=== PATIENT | female | born 1995 | race Caucasian/White ===

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

== ENCOUNTER 2018-03-25 14:12 | Emergency (ER) | payer OTHER ==
--- NOTE | 2018-03-25 14:21 | PDOC ---
History of Present Illness - General Chief Complaint: Nausea/Vomiting Stated Complaint: Vomiting/9 WEEKS Time Seen by Provider: 03/25/18 14:21 Past History - Past Medical History Home Medications: Ambulatory Orders Albuterol Sulfate Inhaler - [Ventolin HFA Inhaler -] 1 - 2 inh PO QID PRN #1 inhaler 09/20/16 Diabetes: Yes (PRE) - Suicide/Smoking/Psychosocial Hx Smoking History: Current every day smoker Have you smoked in the past 12 months: Yes Number of Cigarettes Smoked Daily: 20 'Breaking Loose' booklet given: 09/20/16 Hx Alcohol Use: No Drug/Substance Use Hx: No Substance Use Type: None
[2018-03-25] MEDS ORDERED: SODIUM CHLORIDE 0.9% 500 ML INFUS.BAG IV ONE ×2 (14:31→16:34)
[2018-03-25] MEDS ORDERED: RANITIDINE HCL 150 MG/10 ML UNIT-DOSE PO ONE (14:31)
[2018-03-25] MEDS ORDERED: METOCLOPRAMIDE HCL INJECTION 10 MG/2 ML VIAL IVPUSH ONE (14:31)
[2018-03-25] MEDS ORDERED: LIDOCAINE VISCOUS 2% ORAL/TOP 20 ML UNIT-DOSE CUP MM ONE (14:31)
[2018-03-25] MEDS ORDERED: MAG HYDROX/AL HYDROX/SIMETH 30 ML UNIT-DOSE CUP PO ONE (14:31)
[2018-03-25 14:32] VITALS: BMI 35.2
--- NOTE | 2018-03-25 14:32 | PDOC ---
History of Present Illness - General Chief Complaint: Nausea/Vomiting Stated Complaint: Vomiting/9 WEEKS - History of Present Illness Initial Comments: Katie Jules is a 22yo woman, at 9wks gestation by LMP (01/22-01/27) with a PMH of pre-diabetes and PCOS who presents with over a week of constant nausea and vomiting. She reports that she has not taken any medication at home and has not called her OB because her mother told her that vomiting was normal. However , she states that she has been unable to keep down any food or liquids for days , and she has been having difficulty sleeping due to constant vomiting. Ms Jules states that she has established care with an OB at [facility], and her was confirmed with a blood test. She has not yet had an ultrasound. She was last seen by her OB on 03/15/18. Past History - Past Medical History Allergies/Adverse Reactions: Allergies Allergy/AdvReac Type Severity Reaction Status Date / Time No Known Allergies Allergy Verified 03/25/18 15:16 Home Medications: Ambulatory Orders Albuterol Sulfate Inhaler - [Ventolin HFA Inhaler -] 1 - 2 inh PO QID PRN #1 inhaler 09/20/16 Doxylamine Succinate [Nighttime Sleep-Aid] 25 mg PO HS PRN #15 tablet 03/25/18 Pnv No.121/Iron/Folic Acid [ Multivitamin Tablet] 1 each PO DAILY #15 tablet 03/25/18 Pyridoxine HCl (Vitamin B6) [Pyridoxine HCl] 25 mg PO Q8H PRN #45 tablet Diabetes: Yes (PRE) - Suicide/Smoking/Psychosocial Hx Smoking History: Current every day smoker Have you smoked in the past 12 months: Yes Number of Cigarettes Smoked Daily: 20 'Breaking Loose' booklet given: 09/20/16 Hx Alcohol Use: No Drug/Substance Use Hx: No Substance Use Type: None Review of Systems - Review of Systems Comments:: General: No fevers, no chills, no weight or appetite change, no malaise HEENT: No changes in vision, no changes in hearing, no congestion, no sore throat CV: No chest pain, no palpitations, no LE edema Pulm: No SOB, no cough, no wheezing GI: +Nausea and vomiting. +Cannot tolerate PO. No change in bowel habits, no melena : No frequency, no urgency, no dysuria. +9wks by LMP. h/o PCOS Musc: No back pain, no joint swelling, no recent injury Skin: No rash, no lesions, no erythema Endo: No excessive thirst, no heat/cold intolerance. h/o pre-DM Heme: No unusual bruising or bleeding, no swollen glands Neuro: No syncope, no numbness/tingling, no focal weakness Vasc: No claudication Psych: No recent change in mood, no SI or HI *Physical Exam - Physical Exam Comments: General: Uncomfortable but in no acute distress HEENT: PERRL, EOMI, MMM, voice normal, normal neck ROM, no LAD Cards: RRR, no murmur appreciated Pulm: Comfortable on room air, clear to auscultation bilaterally Abd: Soft, nontender, nondistended, obese : No CVA tenderness Ext: Atraumatic. No LE edema. ROM intact. Strength 5/5 and equal bilaterally Vasc: Extremities WWP. Palpable radial and pedal pulses bilaterally Skin: Normal color, no rashes or lesions Neuro: A&Ox3, CN grossly intact, normal speech, motor/sensory grossly intact and symmetric Psych: Mood appropriate to situation ED Treatment Course - LABORATORY CBC & Chemistry Diagram: 03/25/18 15:25 03/25/18 15:25 Medical Decision Making - Medical Decision Making 03/25/18 14:40 Katie Jules is a 22yo woman with a PMH of PCOS and pre-diabetes, currently 9wks by LMP who presents with PO intolerance secondary to continuous nausea and vomiting for the past 1-1.5 weeks. - CBC, CMP to evaluate for abnormalities, especially electrolytes, given reported continuous vomiting - UA, urine preg, bHCG to confirm - Reglan IV and GI cocktail for vomiting and nausea. - 1L fluid bolus for likely dehydration - Plan to complete bedside abdominal US 03/25/18 15:35 - Bedside US completed. Confirmed single IUP. FHR measured at 166 and 175. Difficult to determine accurate CRL and dates because of artifact secondary to habitus - No additional vomiting - Labs pending 03/25/18 16:28 - Labs reviewed. Notable for random glucose 135, bHCG 98931. Leukocytosis 16.8 likely due to increase during combined with reaction to repeat vomiting. No fever or other abnormalities indicating infection. - Feels significnatly improved following medications - Given crackers and juice for PO challenge - Has not yet given urine sample. 03/25/18 18:09 - UA negative - Able to drink apple juice and eat a yari cracker - Discussed home care at length. Ms Jules states understanding - Discussed importance of follow up and explained plan to discharge home. Ms Jules states understanding and agreement. Seen and discussed with Dr Mcmanus. Nini Caballero PGY1 *DC/Admit/Observation/Transfer Diagnosis at time of Disposition: Nausea/vomiting in - Discharge Dispostion Disposition: HOME Condition at time of disposition: Stable Decision to Admit order: No - Prescriptions Prescriptions: Doxylamine Succinate [Nighttime Sleep-Aid] 25 mg PO HS PRN #15 tablet PRN Reason: Nausea And/Or Vomiting Pnv No.121/Iron/Folic Acid [ Multivitamin Tablet] 1 each PO DAILY #15 tablet Pyridoxine HCl (Vitamin B6) [Pyridoxine HCl] 25 mg PO Q8H PRN #45 tablet PRN Reason: Nausea And/Or Vomiting - Referrals Referrals: Mohsen Whitehead MD [Staff Physician] - - Patient Instructions Printed Discharge Instructions: DI for Hyperemesis Gravidarum, DI for -- Discomforts and Remedies Additional Instructions: Discharge Instructions: You were seen in the emergency department for nausea and vomiting during your . You had blood tests that were negative for any abnormalities. Your hormone was in the normal range (41,765). You also had an ultrasound completed showing a normal intrauterine with a normal heart rate. While in the emergency department, you were given IV fluids for hydration and anti-nausea medication to help you feel better. You were able to eat before you left for home. Medications: - You have been prescribed several medications to help with your nausea. Prescriptions were sent to your pharmacy, but you can also buy these medications over the counter without a prescription. Do not take more medication than has been prescribed unless you contact your clinic manager and receive different instructions. - Doxylamine is an antihistamine (allergy medicine) that can help with nausea and vomiting during . This medication makes you sleepy, so take 1/2 to 1 full tablet (12.5 to 25mg) before bed as needed. - Pyridoxine (Vitamin B6) is also known to help with nausea/vomiting in . You may take one tablet (25mg) every 8 hours as needed for nausea and vomiting. - You have also been given a prescription for vitamins. It is very important that you start taking this vitamin as soon as possible to help ensure that your baby continues to grow and develop normally. Follow Up: - Please see your clinic manager at your already scheduled appointment. If you have continued nausea or vomiting, contact your clinic manager to see if he/she has any suggestions. - If you need to establish care with an clinic manager at [facility], you have been referred to Dr Whitehead - Seek immediate medical care if you have continued severe nausea and vomiting that prevents you from eating or drinking anything at all. Also seek immediate care if you have any medical emergencies including chest pain or shortness of breath. - Post Discharge Activity
--- NOTE | 2018-03-25 15:19 | PDOC ---
Attending Attestation - Resident Resident Name: Nini Caballero - ED Attending Attestation I have performed the following: I have examined & evaluated the patient, The case was reviewed & discussed with the resident, I agree w/resident's findings & plan - [facility] HPI: 03/25/18 15:23 JOVANNY is a 22 YOF with h/o PCOS and pre-DM, currently 9 weeks gestation by LMP in early January 2018 presenting with diffuse AP, burning quality, nausea and vomiting x 1 week. Has her OB at [facility]. Denies tobacco or etoh or drug use. No medications taken. She states that she has established care with an OB at [facility], and her was confirmed with a blood test. She has not yet had an ultrasound. She was last seen by her OB on 03/15/18. - Physicial Exam PE: 03/25/18 15:23 NAD, well appearing, PERRL, EOMI, MMM, nl conjunctiva, anicteric; neck supple. lungs clear, RRR, abdomen soft diffuse tenderness, worse periumbilical/ epigastrium, no lower pelvic/quadrant tenderness. no cvat. . VELASQUEZ x4, no focal neuro deficits. No peripheral edema. normal color for ethnicity, WWP. - Medical Decision Making 03/25/18 15:24 See HPI for details Vital signs reviewed, wnl. Prior notes reviewed, including admissions, discharges and consultations. laboratory results and imaging reviewed, basic labs and lytes wnl, notable for leukocytosis, no prior, to 16K, however nontoxic appearing, no fever, no AP or VB, so doubt abdominal pathology, no peritoneal findings. likely from n/v, and physiologic response of . +, as expected UA: neg for infection ED course: given GI cocktail, antacid, ranitidine, requesting juice and water. few episodes of NBNB emesis, given hydration and reassess. Bedside pelvic TAB US with +IUP visualized, no pelvic FF, estimated CRL dating ~ 7 weeks with best image, and FHR 165-173 bpm. Reassuring findings. No lower Ap/focality, no VB - can follow up outpatient with OB, at [facility] Recommended diclegis, separate components can be cheaper, adequate hydration, rest and vitamins. vitamins daily Dispo: Pt to be discharged in stable condition. Patient and family made aware of impression and plan, return precautions discussed (including but not limited to worsening pain or symptoms), fevers, or signs of infection, chest pain, respiratory distress, inability to tolerate oral intake, dehydration, syncope, or neurologic changes). Follow up with PMD and/or specialist as recommended, follow up information provided, take medications as instructed for duration of time. continue with supportive care, avoid triggers and precipitants. All questions answered to patient's satisfaction and expressed understanding and comfort with this. 03/26/18 08:26
[2018-03-25] MEDS ORDERED: RANITIDINE HCL 150 MG TABLET (FP) ONE (15:24)
[2018-03-25 15:38] LABS: BASO % 0.2 % (0-2.0); HEMATOCRIT 42.9 % (32.4-45.2); HEMOGLOBIN 14.2 GM/dL (10.7-15.3); LYMPH % 13.9 % (8-40); MCH 30.1 pg (25.7-33.7); MCHC 33.1 g/dl (32.0-36.0); MEAN CELL VOLUME 90.9 fl (80-96); MEAN PLT VOLUME 10.1 fl (7.5-11.1); NEUT % 80.9 % (42.8-82.8); PLATELET COUNT 301 K/MM3 (134-434); RBC 4.72 M/mm3 (3.60-5.2); RDW 12.7 % (11.6-15.6); WHITE BLOOD COUNT 16.8 K/mm3 (4.0-10.0)
[2018-03-25 16:08] LABS: ALBUMIN 4.2 g/dl (3.4-5.0); ALK PHOS 74 U/L (45-117); ANION GAP 14 MMOL/L (8-16); BILIRUBIN,TOTAL 1.1 mg/dL (0.2-1); BLOOD UREA NITROGEN 11 mg/dL (7-18); CALCIUM 9.5 mg/dL (8.5-10.1); CHLORIDE 99 mmol/L (98-107); CO2 24 mmol/L (21-32); CREATININE 0.8 mg/dL (0.55-1.3); GLUCOSE,RANDOM 135 mg/dL (74-106); LIPASE 73 U/L (73-393); POTASSIUM 3.5 mmol/L (3.5-5.1); SGOT/AST 12 U/L (15-37); SGPT/ALT 17 U/L (13-61); SODIUM 137 mmol/L (136-145)
[2018-03-25 17:50] LABS: URINE APPEARANCE CLOUDY; URINE BILIRUBIN NEGATIVE (<2.0 mg/dL); URINE COLOR YELLOW; URINE GLUCOSE (UA) NEGATIVE (NEGATIVE); URINE KETONE 1+ (NEGATIVE); URINE LEUK ESTERASE NEGATIVE (NEGATIVE); URINE NITRITE NEGATIVE (NEGATIVE); URINE PROTEIN 1+ (NEGATIVE); URINE UROBILINOGEN NEGATIVE mg/dL (0.2-1.0)
[2018-03-25 17:53] LABS: EPI CELLS RARE /HPF (FEW); URINE MUCUS MODERATE
[2018-03-25 18:28] VITALS: BP 124/89; PULSE 76; TEMP 98
== END 2018-03-25 18:25 | disposition home or self-care (01) ==
LOC: JER 14:12
PROC: 3E0337Z Introduction of Electrolytic and Water Balance Substance into Peripheral Vein, Percutaneous Approach (ICD-10-PCS; principal; 2018-03-25)
PROC: 3E0337Z Introduction of Electrolytic and Water Balance Substance into Peripheral Vein, Percutaneous Approach (ICD-10-PCS; 2018-03-25)
DX: O26.891 Other specified pregnancy related conditions, first trimester (principal); Z3A.09 9 weeks gestation of pregnancy; R11.2 Nausea with vomiting, unspecified; O24.419 Gestational diabetes mellitus in pregnancy, unspecified control
CPT/HCPCS: 36415; 80053; 81003; 81015; 83690; 84702; 84703; 85025; 87086; 99282-25

== ENCOUNTER 2018-03-28 23:11 | Emergency (ER) | payer OTHER ==
[2018-03-28 23:20] VITALS: BMI 34.9
--- NOTE | 2018-03-28 23:39 | PDOC ---
Attending Attestation - Resident Resident Name: Ariel Moulton - ED Attending Attestation I have performed the following: I have examined & evaluated the patient, The case was reviewed & discussed with the resident, I agree w/resident's findings & plan, Exceptions are as noted - HPI HPI: 03/28/18 23:44 Ms Jules presents to the ER with a complaint of nausea and vomiting Briefly, she is a 22 yo F, 9 wks gestation by LMP (01/22-01/27) 7 weeks based on bedside US. Pt also has a h/o pre-diabetes and PCOS She was seen in the ER several days ago, started on diclegis - Physicial Exam PE: 03/28/18 23:46 GENERAL: The patient is in no acute distress. HEAD: Normal EYES: PERRLA, EOMI, sclera anicteric, conjunctiva clear. ENT: Ears normal, nares patent, oropharynx clear without exudates. Moist mucous membranes. NECK: Normal range of motion, supple without lymphadenopathy, JVD, or masses. LUNGS: Breath sounds equal, clear to auscultation bilaterally. No wheezes, and no crackles. HEART: Regular rate and rhythm, normal S1 and S2 without murmur, rub or gallop. ABDOMEN: Soft, nontender, normoactive bowel sounds. No guarding, no rebound. EXTREMITIES: Normal range of motion, no edema. No clubbing or cyanosis. No erythema, or tenderness. NEUROLOGICAL: Cranial nerves II through XII grossly intact. Normal speech. No focal neurological deficits. MUSCULOSKELETAL: Back non-tender to palpation, no CVA tenderness SKIN: Warm, Dry, normal turgor, no rashes or lesions noted. - Medical Decision Making 03/28/18 23:46 22 yo F presenting to the ER with a complaint of nausea Presentation consistent with hyperemesis gravidarium Will do: Labs, US, UA Will give reglan Will give IVF Will re assess 03/29/18 00:43 Laboratory Tests 03/25/18 03/29/18 15:25 00:15 WBC 16.8 H 15.9 H Hgb 14.2 15.4 H Hct 42.9 43.4 Plt Count 301 298 03/29/18 02:01 CMP hemolzed Pt remains nauseaous and vomiting despite Reglan Will give: 03/29/18 03:12 Laboratory Tests 03/29/18 03/29/18 01:32 01:32 Sodium 139 Potassium 3.0 L Chloride 105 Carbon Dioxide 24 BUN 9 Creatinine 0.5 L Random Glucose 80 Beta HCG, Quant 01656.7 03/29/18 04:18 Pt urine concerntrated Laboratory Tests 03/29/18 04:00 Urine Blood Negative Urine Nitrite Negative Ur Leukocyte Esterase Negative Pt improved with Benadryl Pt po challenged and tolerated this without vomiting Pt asked to return to the ER if vomiting persists Clinical impression: hyperemesis gravidarium, repeat presentation
[2018-03-28] MEDS ORDERED: SODIUM CHLORIDE 1,000 ML IV STA (23:42)
[2018-03-29] MEDS ORDERED: METOCLOPRAMIDE HCL INJECTION 10 MG/2 ML VIAL IVPUSH ONE (00:03)
--- NOTE | 2018-03-29 00:03 | PDOC ---
History of Present Illness - General Chief Complaint: Nausea/Vomiting Stated Complaint: VOMITING, 7WKS Time Seen by Provider: 03/28/18 23:37 History Source: Patient Exam Limitations: No Limitations - History of Present Illness Initial Comments: 03/29/18 00:41 22F, , 9 wks gestation by LMP (01/22-01/27) 7 weeks based on bedside US, presents to the ED with a complaint of nausea and vomiting for the past week. Pt also has a h/o pre-diabetes and PCOS She was seen in the ER several days ago, started on vitamine B6 and momentarily felt better but states that she immediately felt nauseous again on the ride back home. She has been taking her prescription of pyridoxine but with little relief. Still unable to tolerate PO, liquids or solids. She also describes chills and back pain for the past 2 weeks. 03/29/18 00:53 Past History - Past Medical History Allergies/Adverse Reactions: Allergies Allergy/AdvReac Type Severity Reaction Status Date / Time No Known Allergies Allergy Verified 03/28/18 23:17 Home Medications: Ambulatory Orders Pnv No.121/Iron/Folic Acid [ Multivitamin Tablet] 1 each PO DAILY #15 tablet 03/25/18 Pyridoxine HCl (Vitamin B6) [Pyridoxine HCl] 25 mg PO Q8H PRN #45 tablet Diphenhydramine HCl [Benadryl -] 25 mg PO Q8H #90 capsule 03/29/18 COPD: No Diabetes: Yes (PRE) - Reproductive History Is Patient Now?: Yes - Suicide/Smoking/Psychosocial Hx Smoking History: Former smoker Have you smoked in the past 12 months: Yes Number of Cigarettes Smoked Daily: 20 If you are a former smoker, when did you quit?: 2018 Information on smoking cessation initiated: No 'Breaking Loose' booklet given: 09/20/16 Hx Alcohol Use: No Drug/Substance Use Hx: No Substance Use Type: None Review of Systems - Review of Systems Able to Perform ROS?: Yes Is the patient limited Palestinian proficient: No Constitutional: Yes: Chills HEENTM: No: Symptoms Reported Respiratory: No: Symptoms reported Cardiac (ROS): No: Symptoms Reported ABD/GI: Yes: Difficulty Swallowing, Poor Appetite, Poor Fluid Intake Musculoskeletal: Yes: Back Pain Integumentary: No: Symptoms Reported Neurological: No: Symptoms reported All Other Systems: Reviewed and Negative *Physical Exam - Vital Signs Last Vital Signs Temp Pulse Resp BP Pulse Ox 99.3 F 100 H 20 140/76 96 03/28/18 23:17 03/28/18 23:17 03/28/18 23:17 03/28/18 23:17 03/28/18 23:17 - Physical Exam General Appearance: Yes: Nourished, Appropriately Dressed, Obese. No: Apparent Distress HEENT: positive: EOMI, JAVI, Normal ENT Inspection, Other (dry mucosa) Respiratory/Chest: positive: Lungs Clear, Normal Breath Sounds. negative: Chest Tender, Respiratory Distress Cardiovascular: positive: Regular Rhythm, Regular Rate, S1, S2 Gastrointestinal/Abdominal: positive: Normal Bowel Sounds, Soft. negative: Tender Musculoskeletal: positive: Normal Inspection. negative: CVA Tenderness Extremity: positive: Normal Capillary Refill, Normal Inspection, Normal Range of Motion Integumentary: positive: Normal Color, Dry, Warm Neurologic: positive: Fully Oriented, Alert, Normal Mood/Affect, Normal Response , Motor Strength 5/5 Moderate Sedation - Procedure Monitoring Vital Signs: Procedure Monitoring Vital Signs Temperature 99.3 F 03/28/18 23:17 Pulse Rate 100 H 03/28/18 23:17 Respiratory Rate 20 03/28/18 23:17 Blood Pressure 140/76 03/28/18 23:17 O2 Sat by Pulse Oximetry (%) 96 03/28/18 23:17 ED Treatment Course - LABORATORY CBC & Chemistry Diagram: 03/29/18 00:15 03/29/18 01:32 - RADIOLOGY Radiology Studies Ordered: Category Date Time Status <14WKS US [US] Stat Ultrasound 03/28/18 23:41 Ordered Medical Decision Making - Medical Decision Making 03/29/18 00:55 22F 7-9 week here for 2nd visit in the ER for hyperemesis gravidarum. Will obtain official US and try reglan for antiemesis., IV fluids for dehydration, D5LR 03/29/18 06:35 Reglan has little effect. Trying Benadryl which the patient tolerates well. Patient able to eat cracker, not vomiting. Some residual nausea. Second dose of Benadryl, 2nd PO challenge, Discharge with OBGYN follow up. 03/29/18 06:39 *DC/Admit/Observation/Transfer Diagnosis at time of Disposition: Hyperemesis gravidarum - Discharge Dispostion Disposition: HOME Condition at time of disposition: Improved Decision to Admit order: No - Prescriptions Prescriptions: Diphenhydramine HCl [Benadryl -] 25 mg PO Q8H #90 capsule - Referrals Referrals: Aaron Martinez [Primary Care Provider] - - Patient Instructions Printed Discharge Instructions: DI for Hyperemesis Gravidarum Additional Instructions: Follow up with your OBGYN as soon as you can make an appointment. Avoid fatty foods or spicy food. Prefer bland foods. Come back to the emergency department for any new, worsening or concerning symptoms. - Post Discharge Activity
[2018-03-29 00:24] LABS: BASO % 0.5 % (0-2.0); EOS % 0.3 % (0-4.5); HEMATOCRIT 43.4 % (32.4-45.2); HEMOGLOBIN 15.4 GM/dL (10.7-15.3); LYMPH % 24.8 % (8-40); MCHC 35.4 g/dl (32.0-36.0); MEAN CELL VOLUME 90.4 fl (80-96); MEAN PLT VOLUME 10.2 fl (7.5-11.1); MONO % 6.5 % (3.8-10.2); NEUT % 67.9 % (42.8-82.8); PLATELET COUNT 298 K/MM3 (134-434); RBC 4.81 M/mm3 (3.60-5.2); RDW 12.3 % (11.6-15.6); WHITE BLOOD COUNT 15.9 K/mm3 (4.0-10.0)
[2018-03-29] MEDS ORDERED: METOCLOPRAMIDE HCL INJECTION 10 MG/2 ML VIAL ONE (00:29)
[2018-03-29] MEDS ORDERED: DEXTROSE 5%-LACTATED RINGERS 1,000 ML IV SCH (02:00)
[2018-03-29] MEDS ORDERED: RANITIDINE HCL 150 MG TABLET (FP) PO ONE (02:08)
[2018-03-29 02:10] LABS: ALBUMIN 3.2 g/dl (3.4-5.0); ALK PHOS 61 U/L (45-117); ANION GAP 10 MMOL/L (8-16); BILIRUBIN,TOTAL 1.1 mg/dL (0.2-1); BLOOD UREA NITROGEN 9 mg/dL (7-18); CALCIUM 7.4 mg/dL (8.5-10.1); CHLORIDE 105 mmol/L (98-107); CO2 24 mmol/L (21-32); CREATININE 0.5 mg/dL (0.55-1.3); GLUCOSE,RANDOM 80 mg/dL (74-106); SGOT/AST 10 U/L (15-37); SGPT/ALT 15 U/L (13-61); SODIUM 139 mmol/L (136-145)
[2018-03-29] MEDS ORDERED: RANITIDINE HCL 150 MG TABLET (FP) ONE (02:13)
[2018-03-29] MEDS ORDERED: POTASSIUM CHLORIDE ORAL LIQUID 20 MEQ/15 ML PO ONE (02:35)
[2018-03-29] MEDS ORDERED: POTASSIUM CHLORIDE ORAL LIQUID 20 MEQ/15 ML ONE (02:42)
[2018-03-29 04:14] LABS: URINE APPEARANCE CLOUDY; URINE BILIRUBIN NEGATIVE (<2.0 mg/dL); URINE COLOR YELLOW; URINE GLUCOSE (UA) NEGATIVE (NEGATIVE); URINE KETONE 1+ (NEGATIVE); URINE LEUK ESTERASE NEGATIVE (NEGATIVE); URINE NITRITE NEGATIVE (NEGATIVE); URINE PROTEIN NEGATIVE (NEGATIVE); URINE UROBILINOGEN 4.0 E.U/dl mg/dL (0.2-1.0)
[2018-03-29 05:56] VITALS: BP 127/84; PULSE 75; TEMP 98.4
== END 2018-03-29 06:15 | disposition home or self-care (01) ==
LOC: JER 23:11
PROC: 3E033GC Introduction of Other Therapeutic Substance into Peripheral Vein, Percutaneous Approach (ICD-10-PCS; principal; 2018-03-28)
PROC: 3E0337Z Introduction of Electrolytic and Water Balance Substance into Peripheral Vein, Percutaneous Approach (ICD-10-PCS; 2018-03-28)
DX: O26.891 Other specified pregnancy related conditions, first trimester (principal); Z3A.08 8 weeks gestation of pregnancy; O21.0 Mild hyperemesis gravidarum; Z87.891 Personal history of nicotine dependence; R73.03 Prediabetes
CPT/HCPCS: 36415; 76801-TC; 80053; 81003; 84702; 85025; 87086; 96361; 96365; 96375; 96376; 99283-25; J7030

== ENCOUNTER 2018-04-24 18:01 | Emergency (ER) | payer OTHER ==
[2018-04-24] MEDS ORDERED: METOCLOPRAMIDE HCL INJECTION 10 MG/2 ML VIAL IVPB ONE (18:10)
[2018-04-24] MEDS ORDERED: SODIUM CHLORIDE 1,000 ML IV STA (18:10)
[2018-04-24 18:11] VITALS: BP 153/98; PULSE 71; TEMP 98.3; BMI 34.1
--- NOTE | 2018-04-24 18:25 | PDOC ---
History of Present Illness - General Chief Complaint: Nausea/Vomiting Stated Complaint: VOMITING, PREG @ 3 MONTHS Time Seen by Provider: 04/24/18 18:09 History Source: Patient - History of Present Illness Timing/Duration: reports: constant Past History - Past Medical History Allergies/Adverse Reactions: Allergies Allergy/AdvReac Type Severity Reaction Status Date / Time No Known Allergies Allergy Verified 04/24/18 18:08 Home Medications: Ambulatory Orders Pnv No.121/Iron/Folic Acid [ Multivitamin Tablet] 1 each PO DAILY #15 tablet 03/25/18 Pyridoxine HCl (Vitamin B6) [Pyridoxine HCl] 25 mg PO Q8H PRN #45 tablet Diphenhydramine HCl [Benadryl -] 25 mg PO Q8H #90 capsule 03/29/18 COPD: No Diabetes: Yes (PRE) - Reproductive History (#): 1 Polycystic Ovaries: Yes - Suicide/Smoking/Psychosocial Hx Smoking History: Never smoked Have you smoked in the past 12 months: Yes Number of Cigarettes Smoked Daily: 20 If you are a former smoker, when did you quit?: 2018 'Breaking Loose' booklet given: 09/20/16 Hx Alcohol Use: No Drug/Substance Use Hx: No Substance Use Type: None Review of Systems - Review of Systems Constitutional: No: Fever ABD/GI: Yes: Nausea, Vomiting, Abdominal cramping. No: Blood Streaked Bowels, Constipated, Rectal Bleeding, Tarry Stools : No: Dysuria *Physical Exam - Vital Signs Last Vital Signs Temp Pulse Resp BP Pulse Ox 98.3 F 71 18 153/98 99 04/24/18 18:08 04/24/18 18:08 04/24/18 18:08 04/24/18 18:08 04/24/18 18:08 - Physical Exam General Appearance: Yes: Appropriately Dressed, Mild Distress HEENT: positive: Normal Voice Neck: positive: Supple Gastrointestinal/Abdominal: positive: Normal Bowel Sounds, Soft. negative: Tender, Distended, Guarding, Rebound Musculoskeletal: negative: CVA Tenderness Integumentary: positive: Dry, Warm Neurologic: positive: Fully Oriented, Alert, Normal Mood/Affect Moderate Sedation - Procedure Monitoring Vital Signs: Procedure Monitoring Vital Signs Temperature 98.3 F 04/24/18 18:08 Pulse Rate 71 04/24/18 18:08 Respiratory Rate 18 04/24/18 18:08 Blood Pressure 153/98 04/24/18 18:08 O2 Sat by Pulse Oximetry (%) 99 04/24/18 18:08 Medical Decision Making - Medical Decision Making 04/24/18 18:16 22 yo F, h/o anxiety, pre-DM, , ~11 weeks, here w/ intractable n/v w/ some diffuse abd cramping x 2 days. Pt states sxs started shortly after eating chicken at a deli. No diarrhea, f/c. Pt has been seen in ED twice over the past several weeks for hyperememsis and currently on B6 which was relieving sxs until she ate the chicken per pt. Pt states her current sxs feels different from her hyperemesis and is convinced it's due to the chicken she ate. No sick contacts. Pt denies vaginal bleed or dysuria. Of note, official US done on 03/29 demonstrated +IUP ~8 weeks w/ FHR. Labs and UA were also done on prior visits and were unremarkable. F/u with Dr Medina of OB See exam N/V ? hyperemesis vs food related Stable and evelina mildly uncomfortable w/ no sig ttp on abd exam -reglan -IVF -labs -reassess/po trial 04/24/18 19:00 Pt signed out to CRUZ Russ at this point *DC/Admit/Observation/Transfer Diagnosis at time of Disposition: Nausea and vomiting Qualifiers: Vomiting type: unspecified Vomiting Intractability: intractable Qualified Code( s): R11.2 - Nausea with vomiting, unspecified - Referrals - Patient Instructions - Post Discharge Activity
[2018-04-24 18:34] LABS: BASO % 0.3 % (0-2.0); HEMATOCRIT 42.4 % (32.4-45.2); HEMOGLOBIN 14.3 GM/dL (10.7-15.3); LYMPH % 19.3 % (8-40); MCH 30.8 pg (25.7-33.7); MCHC 33.8 g/dl (32.0-36.0); MEAN PLT VOLUME 9.4 fl (7.5-11.1); MONO % 5.6 % (3.8-10.2); NEUT % 74.8 % (42.8-82.8); PLATELET COUNT 261 K/MM3 (134-434); RBC 4.66 M/mm3 (3.60-5.2); RDW 13.2 % (11.6-15.6)
[2018-04-24] MEDS ORDERED: METOCLOPRAMIDE HCL INJECTION 10 MG/2 ML VIAL ONE (19:01)
[2018-04-24 19:04] LABS: ALBUMIN 4.3 g/dl (3.4-5.0); ALK PHOS 61 U/L (45-117); ANION GAP 12 MMOL/L (8-16); BILIRUBIN,TOTAL 1.7 mg/dL (0.2-1); BLOOD UREA NITROGEN 7 mg/dL (7-18); CALCIUM 9.6 mg/dL (8.5-10.1); CHLORIDE 101 mmol/L (98-107); CO2 24 mmol/L (21-32); CREATININE 0.6 mg/dL (0.55-1.3); GLUCOSE,RANDOM 118 mg/dL (74-106); POTASSIUM 3.2 mmol/L (3.5-5.1); SGOT/AST 13 U/L (15-37); SGPT/ALT 16 U/L (13-61); SODIUM 137 mmol/L (136-145); TOT PROT 8.2 g/dl (6.4-8.2)
--- NOTE | 2018-04-24 19:44 | PDOC ---
*Physical Exam - Vital Signs Last Vital Signs Temp Pulse Resp BP Pulse Ox 98.3 F 71 18 153/98 99 04/24/18 18:08 04/24/18 18:08 04/24/18 18:08 04/24/18 18:08 04/24/18 18:08 ED Treatment Course - LABORATORY CBC & Chemistry Diagram: 04/24/18 18:10 04/24/18 18:10 - ADDITIONAL ORDERS Additional order review: Laboratory Results 04/24/18 04/24/18 18:10 18:10 WBC 15.0 H RBC 4.66 Hgb 14.3 Hct 42.4 MCV 91.0 MCH 30.8 MCHC 33.8 RDW 13.2 Plt Count 261 MPV 9.4 Absolute Neuts (auto) 11.2 H Neutrophils % 74.8 Lymphocytes % 19.3 D Monocytes % 5.6 Eosinophils % 0.0 D Basophils % 0.3 Nucleated RBC % 0 Sodium 137 Potassium 3.2 L Chloride 101 Carbon Dioxide 24 Anion Gap 12 BUN 7 Creatinine 0.6 Creat Clearance w eGFR > 60 Random Glucose 118 H Calcium 9.6 Total Bilirubin 1.7 H AST 13 L ALT 16 Alkaline Phosphatase 61 Total Protein 8.2 Albumin 4.3 04/24/18 18:10 RBC 4.66 MCV 91.0 MCHC 33.8 RDW 13.2 MPV 9.4 Neutrophils % 74.8 Lymphocytes % 19.3 D Monocytes % 5.6 Eosinophils % 0.0 D Basophils % 0.3 - Medications Given in the ED: ED Medications Discontinued Medications Generic Name Dose Route Start Last Admin Trade Name Freq PRN Reason Stop Dose Admin Sodium Chloride 1,000 mls @ 1,000 mls/hr 04/24/18 18:10 04/24/18 18:05 Normal Saline - IV 04/24/18 19:09 1,000 mls/hr ASDIR STA Administration Metoclopramide HCl 10 mg 04/24/18 18:10 04/24/18 19:04 Reglan Injection - IVPB 04/24/18 18:11 10 mg ONCE ONE Administration Progress Note - Progress Note Progress Note: Received sign out from GERTRUDIS Jones. Briefly this is a 22-year-old woman who is 11 weeks with hyperemesis gravidarum who is been using the sex with good relief of her upper hyperemesis. Patient now with 1 day of nausea and vomiting after [facility]. Patient here for evaluation of the nausea and vomiting. Patient has been given IV Reglan and normal saline fluid bolus. Laboratory testing is notable for WBC of 15,000 a potassium of 3.2. Attempts to evaluate patient been unsuccessful. I spoke with the patient's RN, she stated the patient removed her IV and eloped from care prior to my assessment. *DC/Admit/Observation/Transfer Diagnosis at time of Disposition: Nausea and vomiting Qualifiers: Vomiting type: unspecified Vomiting Intractability: intractable Qualified Code( s): R11.2 - Nausea with vomiting, unspecified - Discharge Dispostion Disposition: ELOPED - Referrals - Patient Instructions - Post Discharge Activity
== END 2018-04-24 19:20 | disposition left against medical advice (07) ==
LOC: JER 18:01
PROC: 3E0337Z Introduction of Electrolytic and Water Balance Substance into Peripheral Vein, Percutaneous Approach (ICD-10-PCS; principal; 2018-04-24)
PROC: 3E033GC Introduction of Other Therapeutic Substance into Peripheral Vein, Percutaneous Approach (ICD-10-PCS; 2018-04-24)
DX: O26.891 Other specified pregnancy related conditions, first trimester (principal); R11.2 Nausea with vomiting, unspecified; O99.89 Other specified diseases and conditions complicating pregnancy, childbirth and the puerperium; R73.03 Prediabetes; Z3A.11 11 weeks gestation of pregnancy
CPT/HCPCS: 36415; 80053; 85025; 96361; 96374; 99281-25; J7030

== ENCOUNTER 2018-05-27 04:58 | Emergency (ER) | payer OTHER ==
[2018-05-27 05:18] VITALS: TEMP 97.8; BMI 32.8
[2018-05-27] MEDS ORDERED: SODIUM CHLORIDE 0.9% 500 ML INFUS.BAG IV ONE (05:41)
--- NOTE | 2018-05-27 05:44 | PDOC ---
History of Present Illness - General Chief Complaint: Nausea/Vomiting Stated Complaint: VOMITING, 17 WKS - History of Present Illness Initial Comments: Katie Jules is a 22yo woman with a PMH of pre-diabetes, PCOS, currently 17wks by US who presents reporting 3 days of intractable vomiting with inability to tolerate any PO intake. She has been seen multiple times in the ED over the past 6 weeks with similar complaint. Ms Jules reports that she has had constant problems with nausea and vomiting throughout her . She has taken the medication prescribed during her previous ED visits with only modest improvement in her symptoms. She states that recently she thinks that "the pill is making her throw up." Over the past 2-3 days, she states that she has not even been able to tolerate water. She has established care with an [employer] systems administrator, but she says that her OB has not addressed her frequent nausea. Ms Jules reports that she has no additional symptoms. She has not changed her diet recently, has not traveled, and has no sick contacts. She denies fevers , chills, respiratory symptoms, diarrhea/constipation, hematemesis, or focal abdominal pain. She does endorse some abdominal soreness after vomiting. Past History - Past Medical History Allergies/Adverse Reactions: Allergies Allergy/AdvReac Type Severity Reaction Status Date / Time No Known Allergies Allergy Verified 05/27/18 05:17 Home Medications: Ambulatory Orders Pnv No.121/Iron/Folic Acid [ Multivitamin Tablet] 1 each PO DAILY #15 tablet 03/25/18 Pyridoxine HCl (Vitamin B6) [Pyridoxine HCl] 25 mg PO Q8H PRN #45 tablet Diphenhydramine HCl [Benadryl -] 25 mg PO Q8H #90 capsule 03/29/18 COPD: No Diabetes: Yes (PRE) - Reproductive History (#): 1 Polycystic Ovaries: Yes - Suicide/Smoking/Psychosocial Hx Smoking History: Never smoked Have you smoked in the past 12 months: No Number of Cigarettes Smoked Daily: 20 If you are a former smoker, when did you quit?: 2018 Information on smoking cessation initiated: No 'Breaking Loose' booklet given: 09/20/16 Hx Alcohol Use: No Drug/Substance Use Hx: No Substance Use Type: None Review of Systems - Review of Systems Comments:: General: No fevers, no chills, no weight or appetite change, no malaise HEENT: No changes in vision, no changes in hearing, no congestion, no sore throat CV: No chest pain, no palpitations, no LE edema Pulm: No SOB, no cough, no wheezing GI: See HPI. No change in bowel habits. : No frequency, no urgency, no dysuria Musc: No back pain, no joint swelling, no recent injury Skin: No rash, no lesions, no erythema Endo: No excessive thirst, no heat/cold intolerance Heme: No unusual bruising or bleeding, no swollen glands Neuro: No syncope, no numbness/tingling, no focal weakness Vasc: No claudication Psych: No recent change in mood, no SI or HI *Physical Exam - Vital Signs Last Vital Signs Temp Pulse Resp BP Pulse Ox 97.8 F 70 18 162/97 100 05/27/18 05:17 05/27/18 05:17 05/27/18 05:17 05/27/18 05:17 05/27/18 05:17 - Physical Exam Comments: General: In no acute distress, obese, appears stated age HEENT: PERRL, EOMI, MMM, voice normal, normal neck ROM, no LAD Cards: RRR, no murmur appreciated Pulm: Comfortable on room air, clear to auscultation bilaterally Abd: Soft, nontender, nondistended, not obviously gravid Ext: Atraumatic. No LE edema. ROM intact. Strength 5/5 and equal bilaterally Vasc: Extremities WWP. Skin: Normal color, no rashes or lesions Neuro: A&Ox3, CN grossly intact, normal speech, motor/sensory grossly intact and symmetric Psych: Mood appropriate to situation Moderate Sedation - Procedure Monitoring Vital Signs: Procedure Monitoring Vital Signs Temperature 97.8 F 05/27/18 05:17 Pulse Rate 70 05/27/18 05:17 Respiratory Rate 18 05/27/18 05:17 Blood Pressure 162/97 05/27/18 05:17 O2 Sat by Pulse Oximetry (%) 100 05/27/18 05:17 ED Treatment Course - LABORATORY CBC & Chemistry Diagram: 05/27/18 06:30 05/27/18 06:30 Medical Decision Making - Medical Decision Making 05/27/18 05:44 Katie Jules is a 22yo woman with a PMH POCS and pre-diabetes, currently 17wk by US who presents with nausea, vomiting, and inability to tolerate PO for 3-4 days. She has been seen multiple times in the ED with the same symptoms and states that they are unchanged from previous. - This is most likely -related nausea and vomiting - No diarrhea, significant abdominal pain, fever/chills, respiratory symptoms suggesting other causes of vomiting including flu, cholecystitis, pancreatitis, gastroenteritis. Pt is prediabetic, could be diabetic now during . - CBC, CMP, UA to rule out electrolyte abnormalities, hyperglycemia, dehydration 05/27/18 06:46 - Zofran for nausea - Now reporting heartburn, giving famotidine - Pt requested water. Drinking without difficulty, no additional vomiting 05/27/18 06:58 Patient signed out to Dr Omer for remainder of ED care. Discussed with Dr Ashton. Nini Caballero PGY1 *DC/Admit/Observation/Transfer Diagnosis at time of Disposition: Nausea/vomiting in - Referrals Referrals: Aaron Martinez [Primary Care Provider] - - Patient Instructions - Post Discharge Activity
[2018-05-27] MEDS ORDERED: ONDANSETRON 4 MG/2 ML VIAL IVPUSH ONE (06:03)
--- NOTE | 2018-05-27 06:03 | PDOC ---
Attending Attestation - Resident Resident Name: Nini Caballero - ED Attending Attestation I have performed the following: I have examined & evaluated the patient, The case was reviewed & discussed with the resident, I agree w/resident's findings & plan, Exceptions are as noted - HPI HPI: 05/27/18 07:05 22F pmh of PCOS, pre-dm 17wk with intractable n/v, nbnb. She has been seen and evaluated for same complaint several times in the recent past. Has follow up with OB. - Physicial Exam PE: 05/27/18 07:06 NAD, AOx3, MMM NCAT Neck supple RRR LCTAB Abd soft, nt, nd VELASQUEZ, NFD 05/27/18 07:08 - Medical Decision Making 05/27/18 07:06 hyperemesis gravidarum? AGE f/u labs to eval for electrolyte derangement Patient was given gi rx, tolerating PO at time of exam If no derangements requiring correction/repletion safe for discharge to OB for continued care
[2018-05-27] MEDS ORDERED: ONDANSETRON 4 MG/2 ML VIAL ONE (06:28)
[2018-05-27] MEDS ORDERED: FAMOTIDINE 20 MG/50 ML IVPB 20 MG/50 ML MG IVPB ONE ×2 (06:37→06:41)
[2018-05-27 06:55] LABS: BASO % 0.2 % (0-2.0); LYMPH % 13.8 % (8-40); MCH 32.4 pg (25.7-33.7); MCHC 35.2 g/dl (32.0-36.0); MEAN CELL VOLUME 92.1 fl (80-96); MONO % 5.5 % (3.8-10.2); NEUT % 80.5 % (42.8-82.8); PLATELET COUNT 248 K/MM3 (134-434); RBC 4.02 M/mm3 (3.60-5.2); WHITE BLOOD COUNT 15.4 K/mm3 (4.0-10.0)
--- NOTE | 2018-05-27 07:09 | PDOC ---
*Physical Exam - Vital Signs Last Vital Signs Temp Pulse Resp BP Pulse Ox 97.8 F 70 18 162/97 100 05/27/18 05:17 05/27/18 05:17 05/27/18 05:17 05/27/18 05:17 05/27/18 05:17 - Physical Exam Comments: 05/27/18 09:24 patient still nauseous but able to sip water states the last visit with her outpatient OBGYN Dr Medina ([facility]) was 1 w ago, dr is aware of nausea. ED Treatment Course - LABORATORY CBC & Chemistry Diagram: 05/27/18 06:30 05/27/18 06:30 - Medications Given in the ED: ED Medications Discontinued Medications Generic Name Dose Route Start Last Admin Trade Name Freq PRN Reason Stop Dose Admin Famotidine/Sodium Chloride 20 mg in 50 mls @ 100 mls/hr 05/27/18 06:37 06:41 Pepcid 20 Mg Premixed Ivpb - IVPB 05/27/18 07:06 100 mls/hr ONCE ONE Administration Ondansetron HCl 4 mg 05/27/18 06:03 05/27/18 06:40 Zofran Injection IVPUSH 05/27/18 06:04 4 mg ONCE ONE Administration Sodium Chloride 1,000 ml 05/27/18 05:41 05/27/18 05:42 Normal Saline - IV 05/27/18 05:42 1,000 ml ONCE ONE Administration Progress Note - Progress Note Progress Note: patient has leukocytosis of 15 consistent with prior lab results during this (may be reactive due to vomiting or ) has slight hyperbilirubinemia also consistent with prior labs has 1+ urine protein, present on prior UA but this time patient is hypertensive 160 systolic, repeat BP 145/81 Will oreder OB US to appreciate heart rate, will consult OBGYN to discuss possibility of preeclampsia HR 123, BASEBALL SCOUT US consistent with live IU 16w 3 d [address] Dutton, patient does not meet preeclampsia criteria, will dc on labetalol 100 bid and close follow up with Dr Medina today or wednesday. *DC/Admit/Observation/Transfer Diagnosis at time of Disposition: Nausea/vomiting in , Hypertension complicating in second trimester - Discharge Dispostion Disposition: HOME Condition at time of disposition: Stable Decision to Admit order: No - Prescriptions Prescriptions: Labetalol HCl [Normodyne -] 100 mg PO BID #14 tablet - Referrals Referrals: Aaron Martinez [Primary Care Provider] - - Patient Instructions Additional Instructions: You were found to have high blood pressure in the ER 162/97, then 145/81 and 1+ protein in urine. This can be concerning in . Our cloth printer does not think this is Preeclampsia (a dangerous condition) but it is very important to get your blood pressure under control. Please take Labetalol 100 mg twice a day (for blood pressure), we sent your pharmacy a prescription for 7 days. It is very important that you follow up with Dr Medina. We made you an appointment with her partner Dr Meadows on WedJun 03 at 2pm in the same office where you see Dr Medina. Please bring all of your discharge paperwork to the appointment. Return to ED if severe symptoms resume - Post Discharge Activity
[2018-05-27 07:31] LABS: ALBUMIN 3.6 g/dl (3.4-5.0); ALK PHOS 45 U/L (45-117); ANION GAP 11 MMOL/L (8-16); BILIRUBIN,TOTAL 1.2 mg/dL (0.2-1); BLOOD UREA NITROGEN 8 mg/dL (7-18); CALCIUM 8.9 mg/dL (8.5-10.1); CHLORIDE 101 mmol/L (98-107); CO2 24 mmol/L (21-32); CREATININE 0.4 mg/dL (0.55-1.3); GLUCOSE,RANDOM 116 mg/dL (74-106); MAGNESIUM 1.8 mg/dL (1.8-2.4); PHOSPHOROUS 3.5 mg/dL (2.5-4.9); POTASSIUM 3.2 mmol/L (3.5-5.1); SGOT/AST 7 U/L (15-37); SGPT/ALT 13 U/L (13-61); SODIUM 136 mmol/L (136-145)
[2018-05-27] MEDS ORDERED: POTASSIUM CHLORIDE ORAL LIQUID 20 MEQ/15 ML PO ONE (07:43)
[2018-05-27] MEDS ORDERED: POTASSIUM CHLORIDE ORAL LIQUID 20 MEQ/15 ML ONE (07:52)
[2018-05-27 08:26] LABS: URINE APPEARANCE CLOUDY; URINE BILIRUBIN NEGATIVE (<2.0 mg/dL); URINE COLOR DKYELLOW; URINE GLUCOSE (UA) NEGATIVE (NEGATIVE); URINE KETONE 1+ (NEGATIVE); URINE LEUK ESTERASE TRACE (NEGATIVE); URINE NITRITE NEGATIVE (NEGATIVE); URINE PROTEIN 1+ (NEGATIVE); URINE UROBILINOGEN NEGATIVE mg/dL (0.2-1.0)
[2018-05-27 09:00] LABS: URINE BACTERIA RARE /hpf (NONE SEEN)
[2018-05-27] MEDS ORDERED: diphenhydrAMINE HCL 25 MG CAPSULE (FP) PO ONE ×2 (09:24→09:26)
[2018-05-27] MEDS ORDERED: METOCLOPRAMIDE HCL 10 MG TABLET (FP) PO ONE ×2 (09:24→09:26)
[2018-05-27 09:28] VITALS: BP 145/81; PULSE 55
[2018-05-27] MEDS ORDERED: LABETALOL HCL 100 MG TABLET (FP) PO ONE (10:06)
[2018-05-27] MEDS ORDERED: LABETALOL HCL 100 MG TABLET (FP) ONE (11:05)
== END 2018-05-27 11:12 | disposition home or self-care (01) ==
LOC: JER 04:58
PROC: 3E0337Z Introduction of Electrolytic and Water Balance Substance into Peripheral Vein, Percutaneous Approach (ICD-10-PCS; principal; 2018-05-27)
PROC: 3E033GC Introduction of Other Therapeutic Substance into Peripheral Vein, Percutaneous Approach (ICD-10-PCS; 2018-05-27)
DX: O26.892 Other specified pregnancy related conditions, second trimester (principal); Z3A.17 17 weeks gestation of pregnancy; R11.2 Nausea with vomiting, unspecified
CPT/HCPCS: 36415; 76815; 80053; 81003; 81015; 83735; 84100; 85025; 99282-25

== ENCOUNTER 2021-11-17 23:12 | Emergency (ER) | payer OTHER ==
[2021-11-17 23:18] VITALS: BP 144/90; PULSE 100; RESP 20; TEMP 98; BMI 30.4
[2021-11-18] MEDS ORDERED: ACETAMINOPHEN 500 MG TABLET (FP) PO ONE (01:17)
[2021-11-18] MEDS ORDERED: ACETAMINOPHEN 325 MG TABLET (FP) ONE (01:21)
== END 2021-11-18 01:55 | disposition home or self-care (01) ==
LOC: JER 23:12
DX: S62.356A Nondisplaced fracture of shaft of fifth metacarpal bone, right hand, initial encounter for closed fracture (principal)
CPT/HCPCS: 73110-TC-RT-FY; 73130-TC-RT-FY; 99284-25